=== PATIENT | female | born 1995 | race Caucasian/White ===

== ENCOUNTER 2020-08-25 13:41 | Emergency (ER) | payer OTHER ==
[~2020-08-25] VITALS: Ht 157.5 cm; Wt 54.4 kg
[2020-08-25 14:23] LABS: ABSOLUTE EOSINOPHILS 0.1 thou/uL (0.0-0.7); ABSOLUTE LYMPHOCYTES 0.8 thou/uL (0.8-5.3); ABSOLUTE MONOCYTES 0.5 thou/uL (0.0-1.2); ABSOLUTE NEUTROPHILS 7.3 thou/uL (1.6-8.1); BASOPHILS 0.4 %; HEMATOCRIT 41.2 % (37.0-47.0); HEMOGLOBIN 14.1 gm/dL (12.0-15.0); LYMPHOCYTES 8.9 %; MCH 28.7 pg (26.0-34.0); MCHC 34.2 g/dL (28.0-37.0); MONOCYTES 5.6 %; NUCLEATED RBCS 0 /100WBC; PLATELET COUNT* 217 thou/uL (150-400); POLYS 84.1 %; RBC 4.91 mil/uL (4.20-5.00); RDW-CV 12.2 % (10.5-14.5); WBC 8.7 thou/uL (4.0-11.0)
[2020-08-25 14:31] LABS: CALCIUM 8.8 mg/dL (8.5-10.1); CREATININE 0.7 mg/dL (0.6-1.3); POTASSIUM 4.1 mmol/L (3.5-5.1)
[2020-08-25 14:36] LABS: ALBUMIN 4.4 g/dL (3.4-5.0); TOTAL BILIRUBIN 0.7 mg/dL (<0.1-1.0); TOTAL PROTEIN 8.2 g/dL (6.4-8.2); URINE BILIRUBIN NEGATIVE (Negative); URINE BLOOD TRACE (Negative); URINE CLARITY CLEAR; URINE COLOR YELLOW; URINE GLUCOSE-RANDOM NEGATIVE (Negative); URINE KETONES 2+ (Negative); URINE LEUKOCYTES-REFLEX NEGATIVE (Negative); URINE NITRITE-REFLEX NEGATIVE (Negative); URINE PROTEIN NEGATIVE (Negative); URINE UROBILINOGEN 0.2 E.U./dl (0.2-1.0)
[2020-08-25] MEDS ORDERED: BENTYL 10 MG CA10 M1 PO (16:07)
[2020-08-25] MEDS ORDERED: ZOFRAN ODT4 MG PO (16:07)
[2020-08-25 16:16] VITALS: BP 106/59
--- NOTE | 2020-08-26 10:42 | EKG ---
[place] [address] ELECTROCARDIOGRAM REPORT Name: CORY MARK Room: [facility]#: [id number] Admission: 08/25/20 Attend Phys: Discharge: 08/25/20 Date of : 89 Date of Service: 08/25/20 1436 Report #: [id number] THIS REPORT FOR: //name// [facility] ED Test Date: 2020-08-25 Test Time: 14:36:40 Pat Name: CORY MARK Department: Room: Gender: F Senior Wealth Advisor: RYLEY : 1995 Requested By: Loyda Rob Order Number: [id number] MD: Matteo Garcia Measurements Intervals [place] Rate: 77 P: 65 GA: 119 QRS: 64 QRSD: 87 T: 27 QT: 411 QTc: 466 Interpretive Statements Sinus rhythm Borderline short GA interval Probable left atrial enlargement Baseline wander in lead(s) V4 No previous ECG available for comparison Electronically Signed On 08-26-2020 10:41:51 CDT by Matteo Garcia [email or web address] <ELECTRONICALLY SIGNED> By: Matteo Garcia MD, FAC 08/26/20 1041 1436 1436 Matteo Garcia MD, [facility] /EPI
== END 2020-08-25 16:18 | disposition home or self-care (01) ==
LOC: M.ERS 13:41
PROVIDERS: Nurse Practitioner Family
DX: K52.9 Noninfective gastroenteritis and colitis, unspecified (principal); E86.0 Dehydration